=== PATIENT | male | born 1985 | race Caucasian/White ===

== ENCOUNTER 2020-02-29 15:01 | Emergency (ER) | payer SELFPAY ==
[2016-01-02 03:18] VITALS: BP 192/82
== END 2020-02-29 15:56 | disposition left against medical advice (07) ==
LOC: ER 15:01
DX: K08.89 Other specified disorders of teeth and supporting structures (principal); F41.0 Panic disorder [episodic paroxysmal anxiety]; Z53.21 Procedure and treatment not carried out due to patient leaving prior to being seen by health care provider